=== PATIENT | male | born 1970 | race Caucasian/White ===

== ENCOUNTER 2020-12-25 14:34 | Emergency (ER) | payer MEDICAID | END 2020-12-25 15:50 | disposition left against medical advice (07) | LOC: JP.ED 14:34 | DX: N50.82 Scrotal pain (principal); Z53.21 Procedure and treatment not carried out due to patient leaving prior to being seen by health care provider ==

== ENCOUNTER 2020-12-28 07:06 | Emergency (ER) | payer MEDICAID ==
--- NOTE | 2020-12-28 08:11 | EDM.PDOC ---
ED HPI GENERAL MEDICAL PROBLEM - General Chief Complaint: General Stated Complaint: POSSIBLE STD Time Seen by Provider: 12/28/20 07:30 Source of Information: Reports: Patient, RN Notes Reviewed History Limitations: Reports: Uncooperative - History of Present Illness INITIAL COMMENTS - FREE TEXT/NARRATIVE: 50-year-old gentleman presents emergency department today with complaint of STD of chlamydia as well as scabies, he is very demanding food demands treatment for this medication will not allow me to examine or conduct an interview - Related Data Allergies Allergy/AdvReac Type Severity Reaction Status Date / Time No Known Allergies Allergy Verified 12/28/20 07:17 Home Meds: Home Meds Cyclobenzaprine [Flexeril] 10 mg PO ASDIRECTED PRN 12/25/20 [History] Dextroamphetamine/Amphetamine [Adderall] 30 mg PO BID 12/25/20 [History] Eszopiclone [Lunesta] 3 mg PO ASDIRECTED PRN 12/25/20 [History] Doxycycline [Vibra-Tabs] 100 mg PO Q12HR #14 tab 12/28/20 [Rx] Permethrin [Permethrin 5% Cream] 60 gm .XX ONETIME #1 tube 12/28/20 [Rx] ceFIXime [Cefixime] 800 mg PO ONETIME #2 capsule 12/28/20 [Rx] Past Medical History Other HEENT History: history of ear infections Cardiovascular History: Reports: Hypertension Gastrointestinal History: Reports: GERD Genitourinary History: Reports: Other (See Below) Other Genitourinary History: dysuria Musculoskeletal History: Reports: Fracture Psychiatric History: Reports: ADHD, Anxiety, Depression Dermatologic History: Reports: Venous Stasis Dermatitis Other Dermatologic History: history of issues with skin - Infectious Disease History Infectious Disease History: Reports: Chicken Pox - Past Surgical History Other Musculoskeletal Surgeries/Procedures:: plate in right arm, back problems, neck problems Social & Family History - Tobacco Use Tobacco Use Status *Q: Current Every Day Tobacco User Years of Tobacco use: 35 Packs/Tins Daily: 1 - Caffeine Use Caffeine Use: Reports: Coffee, Energy Drinks, Soda, Tea - Recreational Drug Use Recreational Drug Use: Yes Recreational Drug Type: Reports: Marijuana/Hashish Recreational Drug Use Frequency: Daily ED ROS GENERAL - Review of Systems Review Of Systems: Unable To Obtain Reason Not Obtained: Cooperative ED EXAM, GENERAL - Physical Exam Exam: See Below Free Text/Narrative:: Examination of the penis done in the presence of nursing staff and appreciate any lesions there is no discharge chlamydia GC swab was obtained the urethra tip, He also shows me a rash that he has on the side of his trunk could possibly be scabies but I am not allowed to examine this Exam Limited By: Uncooperative General Appearance: Alert, WD/WN, No Apparent Distress Course - Vital Signs Last Recorded V/S: Last Vital Signs Temp 97.2 F 12/28/20 07:18 Pulse 88 12/28/20 07:18 Resp 18 12/28/20 07:18 BP 139/90 12/28/20 07:18 Pulse Ox 98 12/28/20 07:18 - Orders/Labs/Meds Orders: Active Orders 24 hr Category Date Time Status CHLAMYDIA/GC AMPLIFICATION Stat Lab 12/28/20 07:46 Ordered Departure - Departure Time of Disposition: 08:10 Disposition: Home, Self-Care 01 Condition: Fair Clinical Impression: Chlamydia, Scabies - Discharge Information Prescriptions: ceFIXime [Cefixime] 800 mg PO ONETIME #2 capsule Permethrin [Permethrin 5% Cream] 60 gm .XX ONETIME #1 tube Doxycycline [Vibra-Tabs] 100 mg PO Q12HR #14 tab Instructions: Chlamydia, Male Referrals: PCP,None [Primary Care Provider] - Additional Instructions: Your medications have been faxed to [facility] pharmacy make sure you take the complete dose of antibiotics you can use the permethrin 1 time leave it on for about 14 hours may repeat in 2 weeks if needed Sepsis Event Note (ED) - Evaluation Sepsis Screening Result: No Definite Risk - Focused Exam Vital Signs: Vital Signs Temp Pulse Resp BP Pulse Ox 12/28/20 07:18 97.2 F 88 18 139/90 98 - My Orders Last 24 Hours: My Active Orders 12/28/20 07:46 CHLAMYDIA/GC AMPLIFICATION Stat - Assessment/Plan Last 24 Hours: My Active Orders 12/28/20 07:46 CHLAMYDIA/GC AMPLIFICATION Stat Plan: Assessment Acuity = acute Site and laterality = presumptive STD of chlamydia presumptive scabies Etiology = unknown Manifestations = none Location of injury = Home Lab values = GC chlamydia culture pending Plan Elected to treat he declined to do any treatment here therefore cefixime 800 mg p.o. x1 and doxycycline 100 mg p.o. twice daily x7 days combination with permethrin cream faxed to [facility] This note was dictated using [employer] voice recognition software please call with any questions on syntax or grammar.
[2020-12-30 10:13] LABS: CHLAMYDIA TRACHOMATIS, NAA Negative (Negative); NEISSERIA GONORRHOEAE, NAA Negative (Negative)
== END 2020-12-28 08:16 | disposition home or self-care (01) ==
LOC: JP.ED 07:06
DX: B86 Scabies (principal); A74.9 Chlamydial infection, unspecified; I10 Essential (primary) hypertension; Z72.0 Tobacco use; Z79.899 Other long term (current) drug therapy; Z20.2 Contact with and (suspected) exposure to infections with a predominantly sexual mode of transmission
CPT/HCPCS: 87491; 87591; 99283

== ENCOUNTER 2021-01-05 23:13 | Emergency (ER) | payer MEDICAID ==
--- NOTE | 2021-01-05 23:28 | EDM.PDOCBH ---
ED HPI GENERAL MEDICAL PROBLEM - General Chief Complaint: Behavioral/Psych Stated Complaint: MEDICAL [facility]IA [facility] Time Seen by Provider: 01/05/21 23:20 Source of Information: Reports: Patient, EMS, Old Records History Limitations: Reports: No Limitations - History of Present Illness INITIAL COMMENTS - FREE TEXT/NARRATIVE: Italo is a 50-year-old male presenting to the ED via [facility] for evaluation of auditory hallucinations. Patient reports that he has been dealing with this on and off for about a year but has been really more significant over the last 3 days. Patient has not been able to get more than a few hours sleep because the voices will not leave him alone. He hears a discrete male and female voice. They I repeatedly barking out commands to him. At times he hears static. Patient is convinced that there is an implant in his head or in his ears that are causing it. He is adamant that he is not schizophrenic or crazy. The patient does have a significant past medical history for methamphetamine use. He has been a smoker for 35 pack years. He has had diminished appetite and has become increasingly distressed with the voices. The patient lives in a fish house in [place] and the owners of the property have noted that he has been much more agitated lately talking louder and slamming doors. The patient himself called law enforcement tonight because of the hallucinations. He had previously been on Adderall but has discontinued about a year ago. Currently is on permethrin for treatment of scabies and doxycycline for treatment of an STD. He also takes Lunesta as needed but has not taken in the last several weeks as it does not really do anything for him. - Related Data Allergies Allergy/AdvReac Type Severity Reaction Status Date / Time No Known Allergies Allergy Verified 01/05/21 23:35 Home Meds: Home Meds Cyclobenzaprine [Flexeril] 10 mg PO ASDIRECTED PRN 12/25/20 [History] Eszopiclone [Lunesta] 3 mg PO ASDIRECTED PRN 12/25/20 [History] Doxycycline [Vibra-Tabs] 100 mg PO Q12HR #14 tab 12/28/20 [Rx] Permethrin [Permethrin 5% Cream] 60 gm .XX ONETIME #1 tube 12/28/20 [Rx] ceFIXime [Cefixime] 800 mg PO ONETIME #2 capsule 12/28/20 [Rx] OLANZapine [Olanzapine] 5 mg PO DAILY #30 tablet 01/06/21 [Rx] Past Medical History Other HEENT History: history of ear infections Cardiovascular History: Reports: Hypertension Gastrointestinal History: Reports: GERD Genitourinary History: Reports: Other (See Below) Other Genitourinary History: dysuria Musculoskeletal History: Reports: Fracture Psychiatric History: Reports: ADHD, Anxiety, Depression Dermatologic History: Reports: Venous Stasis Dermatitis Other Dermatologic History: history of issues with skin - Infectious Disease History Infectious Disease History: Reports: Chicken Pox - Past Surgical History Other Musculoskeletal Surgeries/Procedures:: plate in right arm, back problems, neck problems Social & Family History - Caffeine Use Caffeine Use: Reports: Coffee, Energy Drinks, Soda, Tea ED ROS GENERAL - Review of Systems Review Of Systems: See Below Constitutional: Reports: Decreased Appetite HEENT: Reports: No Symptoms Respiratory: Reports: No Symptoms Cardiovascular: Reports: No Symptoms Endocrine: Reports: No Symptoms GI/Abdominal: Reports: No Symptoms : Reports: No Symptoms Musculoskeletal: Reports: No Symptoms Skin: Reports: No Symptoms Neurological: Reports: No Symptoms Psychiatric: Reports: Agitation, Anxiety, Hallucinations (Auditory hallucinations with 2 discrete voices one being a male and other being a female) Hematologic/Lymphatic: Reports: No Symptoms Immunologic: Reports: No Symptoms ED EXAM, BEHAVIORAL HEALTH - Physical Exam Exam: See Below Exam Limited By: No Limitations General Appearance: Alert, Anxious Eye Exam: Bilateral Eye: EOMI, PERRL Ears: Normal External Exam, Normal Canal, Hearing Grossly Normal, Normal TMs Nose: Normal Inspection, Normal Mucosa, No Blood Throat/Mouth: Normal Inspection, Normal Lips, Normal Oropharynx, Normal Voice, No Airway Compromise Head: Normocephalic, Other (Small abrasion on the left zygomatic arch) Neck: Normal Inspection, Supple Respiratory/Chest: No Respiratory Distress, Lungs Clear, Normal Breath Sounds Cardiovascular: Normal Peripheral Pulses, Regular Rate, Rhythm GI/Abdominal: Normal Bowel Sounds, Soft, Non-Tender, No Distention Back Exam: Normal Inspection, Full Range of Motion Extremities: Normal Inspection, Normal Range of Motion Neurological: Alert, Normal Mood/Affect, Normal Cognition, No Motor/Sensory Deficits, Oriented x 3 Psychiatric: Alert, Agitated, Auditory Hallucinations Skin Exam: Warm, Dry COURSE, BEHAVIORAL HEALTH COMP - Course Vital Signs: Last Vital Signs Temp 36.6 C 01/05/21 23:38 Pulse 99 01/05/21 23:38 Resp 18 01/05/21 23:38 BP 145/85 H 01/05/21 23:38 Pulse Ox 100 01/05/21 23:38 Orders, Labs, Meds: Active Orders 24 hr Category Date Time Status DRUG SCREEN, URINE [URCHEM] Stat Lab 01/05/21 23:52 Ordered OLANZapine [ZyPREXA] Med 01/06/21 00:07 Once 5 mg PO ONETIME ONE Medication Orders Olanzapine (Olanzapine 5 Mg Tab) 5 mg PO ONETIME ONE Stop: 01/06/21 00:08 Laboratory Tests 01/05/21 01/05/21 01/05/21 Range/Units 23:32 23:32 23:32 WBC 9.1 (4.5-11.0) K/uL RBC 5.03 (4.30-5.90) M/uL Hgb 15.6 H (12.0-15.0) g/dL Hct 45.8 (40.0-54.0) % MCV 91 (80-98) fL MCH 31 (27-31) pg MCHC 34 (32-36) % Plt Count 205 (150-400) K/uL Sodium 146 (140-148) mmol/L Potassium 3.8 (3.6-5.2) mmol/L Chloride 106 (100-108) mmol/L Carbon Dioxide 30 (21-32) mmol/L Anion Gap 10.4 (5.0-14.0) mmol/L BUN 12 (7-18) mg/dL Creatinine 1.0 (0.8-1.3) mg/dL Est Cr Clr Drug Dosing 98.66 mL/min Estimated GFR (MDRD) > 60 (>60) Glucose 105 (74-106) mg/dL Calcium 9.3 (8.5-10.1) mg/dL Total Bilirubin 0.5 (0.2-1.0) mg/dL AST 20 (15-37) U/L ALT 25 (12-78) U/L Alkaline Phosphatase 77 (46-116) U/L Total Protein 7.1 (6.4-8.2) g/dL Albumin 3.9 (3.4-5.0) g/dL Globulin 3.2 (2.3-3.5) g/dL Albumin/Globulin Ratio 1.2 (1.2-2.2) Urine Color (YELLOW) Urine Appearance (CLEAR) Urine pH (5.0-8.0) Ur Specific Stafford (1.008-1.030) Urine Protein (NEGATIVE) mg/dL Urine Glucose (UA) (NEGATIVE) mg/dL Urine Ketones (NEGATIVE) mg/dL Urine Occult Blood (NEGATIVE) Urine Nitrite (NEGATIVE) Urine Bilirubin (NEGATIVE) Urine Urobilinogen (0.2-1.0) EU/dL Ur Leukocyte Esterase (NEGATIVE) Urine RBC (0-5) Urine WBC (0-5) Ur Epithelial Cells Amorphous Sediment Urine Bacteria Urine Mucus Ethyl Alcohol < 3 mg/dL 01/05/21 Range/Units 23:52 WBC (4.5-11.0) K/uL RBC (4.30-5.90) M/uL Hgb (12.0-15.0) g/dL Hct (40.0-54.0) % MCV (80-98) fL MCH (27-31) pg MCHC (32-36) % Plt Count (150-400) K/uL Sodium (140-148) mmol/L Potassium (3.6-5.2) mmol/L Chloride (100-108) mmol/L Carbon Dioxide (21-32) mmol/L Anion Gap (5.0-14.0) mmol/L BUN (7-18) mg/dL Creatinine (0.8-1.3) mg/dL Est Cr Clr Drug Dosing mL/min Estimated GFR (MDRD) (>60) Glucose (74-106) mg/dL Calcium (8.5-10.1) mg/dL Total Bilirubin (0.2-1.0) mg/dL AST (15-37) U/L ALT (12-78) U/L Alkaline Phosphatase (46-116) U/L Total Protein (6.4-8.2) g/dL Albumin (3.4-5.0) g/dL Globulin (2.3-3.5) g/dL Albumin/Globulin Ratio (1.2-2.2) Urine Color Yellow (YELLOW) Urine Appearance Slightly cloudy A (CLEAR) Urine pH 7.0 (5.0-8.0) Ur Specific Stafford 1.025 (1.008-1.030) Urine Protein Negative (NEGATIVE) mg/dL Urine Glucose (UA) Negative (NEGATIVE) mg/dL Urine Ketones Negative (NEGATIVE) mg/dL Urine Occult Blood Negative (NEGATIVE) Urine Nitrite Negative (NEGATIVE) Urine Bilirubin Negative (NEGATIVE) Urine Urobilinogen 0.2 (0.2-1.0) EU/dL Ur Leukocyte Esterase Negative (NEGATIVE) Urine RBC 0-5 (0-5) Urine WBC 0-5 (0-5) Ur Epithelial Cells Few Amorphous Sediment Moderate Urine Bacteria Few Urine Mucus Not seen Ethyl Alcohol mg/dL Medications Generic Name Dose Route Start Last Admin Trade Name Freq PRN Reason Stop Dose Admin Olanzapine 5 mg 01/06/21 00:07 Olanzapine 5 Mg Tab PO 01/06/21 00:08 ONETIME ONE Re-Assessment/Re-Exam: Viewed the patient's labs and CT of the head. His CBC and comprehensive metabolic panel are unremarkable. His urinalysis is negative. His ethanol is unremarkable. His urine tox screen significant for amphetamines, methamphetamines, and tetrahydrocannabinol. This certainly could be contributing to his psychoses and auditory hallucinations. CT of the head failed to demonstrate any acute abnormalities. Certainly there is no evidence for an implanted device, nor is there evidence for an obvious neoplasm is there is no mass-effect evident. The patient does have a bit more atrophy than expected for his age. Discharge vs Psych Eval/Treatment:: 01/06/21 00:10 although the patient is having auditory hallucinations and increased agitation, he is not suicidal or homicidal. I am somewhat troubled that the patient is positive for amphetamines and methamphetamines as well as THC on his urine tox screen. He reports that he hasn't taken his Adderall in ove r a year and that he has been abstinent from methamphetamine during that time to which does not make sense with these being positive today. He does report that he does use marijuana recreationally. We will initiate therapy with olanzapine 5 mg daily. I do not believe the patient requires hospitalization at this time but should his condition worsen we can reassess this. I'd like him to follow-up with his primary care provider for mental health Gladis Colindres early next week for reevaluation. Departure - Departure Time of Disposition: 00:15 Disposition: Home, Self-Care 01 Clinical Impression: Auditory hallucinations, Acute psychosis, Methamphetamine use - Discharge Information Instructions: Methamphetamines Use Disorder, Psychosis Referrals: PCP,None [Primary Care Provider] - Forms: ED Department Discharge Care Plan Goals: Your CT of the brain today did not show any foreign bodies or appliances. You do have some shrinkage of the brain more than expected for your age. We are starting you on olanzapine 5 mg daily which should help with the voices. Your urine tox screen today was positive for amphetamines which is likely the Adderall and methamphetamines as well as tetrahydrocannabinol which is from marijuana. This can certainly amplify the voices that you're experiencing. Although auditory hallucinations are commonly associated with schizophrenia they can also be accompanied in cases of bipolar disorder. The olanzapine is one of the safer medications to treat the symptoms for both bipolar and schizophrenia. I would like you to see Gladis Colindres early next week for reevaluation. At this time, I believe that we can safely discharge you back home as you're not suicidal or homicidal. I have enclosed a prescription for the olanzapine to have you fill in the morning but have given you a dose tonight to start treatment. Sepsis Event Note (ED) - Focused Exam Vital Signs: Vital Signs Temp Pulse Resp BP Pulse Ox 01/05/21 23:38 36.6 C 99 18 145/85 H 100 - Problem List & Annotations (1) Acute psychosis SNOMED Code(s): 79881493, 26123563 Code(s): F23 - BRIEF PSYCHOTIC DISORDER Status: Acute Priority: High Current Visit: Yes (2) Auditory hallucinations SNOMED Code(s): 60727557 Code(s): R44.0 - AUDITORY HALLUCINATIONS Status: Acute Priority: High Current Visit: Yes (3) Methamphetamine use SNOMED Code(s): 690257931 Code(s): F15.10 - OTHER STIMULANT ABUSE, UNCOMPLICATED Status: Acute Priority: High Current Visit: Yes - Problem List Review Problem List Initiated/Reviewed/Updated: Yes - My Orders Last 24 Hours: My Active Orders 01/05/21 23:52 DRUG SCREEN, URINE [URCHEM] Stat 01/06/21 00:07 OLANZapine [ZyPREXA] 5 mg PO ONETIME ONE - Assessment/Plan Last 24 Hours: My Active Orders 01/05/21 23:52 DRUG SCREEN, URINE [URCHEM] Stat 01/06/21 00:07 OLANZapine [ZyPREXA] 5 mg PO ONETIME ONE
--- NOTE | 2021-01-06 00:03 | CRLCT ---
INDICATION: Auditory hallucinations, facial head injury from trauma TECHNIQUE: CT Head without i.v. contrast. Coronal and sagittal reformats were obtained. COMPARISON: None FINDINGS: CSF space: The ventricles are normal for age. Brain: No evidence of mass, acute infarction or hemorrhage is seen. No mass-effect or midline shift is seen. The brain parenchyma is otherwise normal in appearance with preservation of the pa-white matter junction. Calvarium: The visualized paranasal sinuses are well aerated. The mastoid air cells are clear. The visualized orbits are grossly unremarkable. The calvarium is unremarkable in appearance with no fractures identified. IMPRESSION: 1. No evidence of acute infarction, intracranial hemorrhage, or mass-effect seen. Please note that all CT scans at this facility use dose modulation, iterative reconstruction, and/or weight-based dosing when appropriate to reduce radiation dose to as low as reasonably achievable. Dictated by: Nick Reyes MD @ 01/06/2021 00:02:56 (Electronically Signed)
[2021-01-06] MEDS ORDERED: OLANZapine 5 MG Tab PO ONE (00:07)
== END 2021-01-06 00:40 | disposition home or self-care (01) ==
LOC: JP.ED 23:13
DX: F23 Brief psychotic disorder (principal); F15.90 Other stimulant use, unspecified, uncomplicated; I10 Essential (primary) hypertension; Z79.899 Other long term (current) drug therapy
CPT/HCPCS: 36415; 70450; 80053; 80305; 80307; 81001; 85027; 99285; A9270; 99283

== ENCOUNTER 2021-01-21 02:06 | Emergency (ER) | payer MEDICAID ==
[2021-01-21] MEDS ORDERED: Ketorolac 60 MG/2 ML SDV IM ONE (02:54)
--- NOTE | 2021-01-21 03:00 | EDM.PDOC ---
ED HPI GENERAL MEDICAL PROBLEM - General Chief Complaint: Lower Extremity Injury/Pain Stated Complaint: HIP PAIN Time Seen by Provider: 01/21/21 02:45 Source of Information: Reports: Patient History Limitations: Reports: No Limitations - History of Present Illness INITIAL COMMENTS - FREE TEXT/NARRATIVE: Italo is a 50-year-old male who is known to me from previous visit last month presenting today for complaint of bilateral hip and low back pain. The patient states that he walked here from [place] where he has been living. He also reports that he works at the [employer] in [place] and when asked how he goes from [place] to [place] states that they send a bus form. Patient has a history significant for psychoses secondary to methamphetamine use and schizophrenia. He told nursing that he has been taking 5-8 Flexeril a day for his back. He states that he is here from [place] to get his car but his car would not run. He reports that the pain is not new and has been going on for least the last year and a half. He states that he can get through a workday without difficulty. He denies any pain down either of the legs. Bilateral Hip Pain Score (Numeric/FACES): 6 - Related Data Allergies Allergy/AdvReac Type Severity Reaction Status Date / Time No Known Allergies Allergy Verified 01/21/21 02:32 Home Meds: Home Meds Cyclobenzaprine [Flexeril] 10 mg PO ASDIRECTED PRN 12/25/20 [History] Eszopiclone [Lunesta] 3 mg PO ASDIRECTED PRN 12/25/20 [History] OLANZapine [Olanzapine] 5 mg PO DAILY #30 tablet 01/06/21 [Rx] Dextroamphetamine/Amphetamine [Adderall] 30 mg PO BID 01/21/21 [History] Past Medical History Other HEENT History: history of ear infections Cardiovascular History: Reports: Hypertension Gastrointestinal History: Reports: GERD Genitourinary History: Reports: Other (See Below) Other Genitourinary History: dysuria Musculoskeletal History: Reports: Back Pain, Chronic, Fracture, Neck Pain, Chronic Other Musculoskeletal History: cervical radiculopathy at c7 Psychiatric History: Reports: ADHD, Addiction, Antisocial Behaviors, Anxiety, Bipolar, Depression, Psychosis, Schizophrenia Dermatologic History: Reports: Venous Stasis Dermatitis Other Dermatologic History: history of issues with skin - Infectious Disease History Infectious Disease History: Reports: Chicken Pox - Past Surgical History Other Musculoskeletal Surgeries/Procedures:: plate in right arm, back problems, neck problems Social & Family History - Family History Family Medical History: No Pertinent Family History - Tobacco Use Tobacco Use Status *Q: Current Every Day Tobacco User Years of Tobacco use: 35 Packs/Tins Daily: 1 - Caffeine Use Caffeine Use: Reports: Coffee, Energy Drinks, Soda - Recreational Drug Use Recreational Drug Type: Reports: Marijuana/Hashish, Methamphetamine ED ROS GENERAL - Review of Systems Review Of Systems: See Below Constitutional: Reports: No Symptoms HEENT: Reports: No Symptoms Respiratory: Reports: No Symptoms Cardiovascular: Reports: No Symptoms Endocrine: Reports: No Symptoms GI/Abdominal: Reports: No Symptoms : Reports: No Symptoms Musculoskeletal: Reports: Back Pain (Chronic low back pain) Skin: Reports: No Symptoms Neurological: Reports: No Symptoms Psychiatric: Reports: Other (Schizophrenia, polysubstance abuse including prescription drugs and methamphetamine) Hematologic/Lymphatic: Reports: No Symptoms Immunologic: Reports: No Symptoms ED EXAM,LOWER BACK PAIN/INJURY - Physical Exam Exam: See Below Exam Limited By: No Limitations General Appearance: Alert, No Apparent Distress Head: Atraumatic, Normocephalic Respiratory/Chest: No Respiratory Distress, Lungs Clear, Normal Breath Sounds Cardiovascular: Normal Peripheral Pulses, Regular Rate, Rhythm Back Exam: Normal Inspection, Full Range of Motion. No: Muscle Spasm, Paraspinal Tenderness, Vertebral Tenderness Extremities: Normal Inspection, Normal Range of Motion, No Pedal Edema Neurological: Alert, Normal Dorsiflexion, Normal Plantar Flexion, Normal Gait, Normal Reflexes, No Motor/Sensory Deficits, Oriented x 3 Skin Exam: Warm, Dry, Intact, Normal Color Lymphatic: No Adenopathy Course - Vital Signs Last Recorded V/S: Last Vital Signs Temp 35.7 C L 01/21/21 02:26 Pulse 100 01/21/21 02:26 Resp 16 01/21/21 02:26 BP 167/93 H 01/21/21 02:26 Pulse Ox 98 01/21/21 02:26 - Orders/Labs/Meds Orders: Active Orders 24 hr Category Date Time Status Pelvis 1V or 2V [CR] Stat Exams 01/21/21 03:43 Taken ESR [SEDIMENTATION RATE MANUAL] [HEME] Stat Lab 01/21/21 02:53 Ordered Labs: Laboratory Tests 01/21/21 Range/Units 03:10 C-Reactive Protein 0.29 (0.0-0.3) mg/dL Meds: Medications Discontinued Medications Generic Name Dose Route Start Last Admin Trade Name Ada PRN Reason Stop Dose Admin Ketorolac Tromethamine 60 mg 01/21/21 02:54 01/21/21 03:00 Ketorolac 60 Mg/2 Ml Sdv IM 01/21/21 02:55 60 mg ONETIME ONE Administration - Radiology Interpretation Free Text/Narrative:: I reviewed the 1 view x-ray of the pelvis showing scoliosis of the lower lumbar spine which is chronic. There is no acute fractures. The pelvis is essentially unremarkable without any evidence of sacroiliac inflammation or widening. Bilateral hips are normal. - Re-Assessments/Exams Free Text/Narrative Re-Assessment/Exam: 01/21/21 03:02 Italo is basically here seeking additional Flexeril. The concern is he has been probably abusing it taking 5-8 a day which is far more than he should be. He does have a history of methamphetamine abuse but states that he has not used since he was started back on his Adderall. It does appear and looking at his medical records that he has been making the rounds trying to get medication. My exam shows no acute abnormalities. We are checking inflammatory markers including CRP and ESR but they are likely both going to be negative. I did give him a shot of Toradol 60 mg IM for his "pain". 01/21/21 04:25 I reviewed the x-rays and his labs. His inflammatory markers are normal. The x-rays show scoliosis of the lower lumbar spine which is chronic. There is no acute sacroiliitis, widening of the sacroiliac joints, or hip abnormalities. There is no acute fractures. We will put the patient on Toradol 10 mg 4 times daily for 5 days. I will not fill his cyclobenzaprine as I believe he is abusing it taking 5-8 a day. Patient is instructed to follow-up with his primary care provider. Departure - Departure Time of Disposition: 04:28 Disposition: Home, Self-Care 01 Clinical Impression: Chronic low back pain without sciatica Qualifiers: Back pain laterality: midline Qualified Code(s): M54.5 - Low back pain; G89.29 - Other chronic pain - Discharge Information Instructions: Chronic Back Pain, [id number] Referrals: PCP,None [Primary Care Provider] - Forms: ED Department Discharge Care Plan Goals: I am putting you on Toradol 10 mg 4 times a day for your ongoing low back pain. On exam there is no evidence for muscle spasm so there is no need to prescribe a muscle relaxant. Follow-up with your primary care provider when you get back to [place]. Sepsis Event Note (ED) - Evaluation Sepsis Screening Result: No Definite Risk - Focused Exam Vital Signs: Vital Signs Temp Pulse Resp BP Pulse Ox 01/21/21 02:26 35.7 C L 100 16 167/93 H 98 - Problem List & Annotations (1) Chronic low back pain without sciatica SNOMED Code(s): 996153772 Code(s): M54.5 - LOW BACK PAIN; G89.29 - OTHER CHRONIC PAIN Status: Acute Priority: Medium Current Visit: Yes Qualifiers: Back pain laterality: midline Qualified Code(s): M54.5 - Low back pain; G89.29 - Other chronic pain - Problem List Review Problem List Initiated/Reviewed/Updated: Yes - My Orders Last 24 Hours: My Active Orders 01/21/21 02:53 ESR [SEDIMENTATION RATE MANUAL] [HEME] Stat 01/21/21 03:43 Pelvis 1V or 2V [CR] Stat - Assessment/Plan Last 24 Hours: My Active Orders 01/21/21 02:53 ESR [SEDIMENTATION RATE MANUAL] [HEME] Stat 01/21/21 03:43 Pelvis 1V or 2V [CR] Stat
--- NOTE | 2021-01-22 11:06 | CR ---
Pelvis 1V or 2V CLINICAL HISTORY: Bilateral SI joint pain FINDINGS: No pelvic fractures identified. Sacrum appears intact. SI joints appear intact and symmetric. Patient has a lumbar levoscoliosis. There is osteoarthritis in the lower lumbar facets IMPRESSION: No fracture or osseous lesion Levoscoliosis Osteoarthritis in the lower lumbar facets
== END 2021-01-21 04:36 | disposition home or self-care (01) ==
LOC: JP.ED 02:06
DX: G89.29 Other chronic pain (principal); M54.5 Low back pain; I10 Essential (primary) hypertension; Z72.0 Tobacco use
CPT/HCPCS: 36415; 72170; 72170-26; 85651; 86140; 96372; 99283; J1885

== ENCOUNTER 2021-02-15 07:22 | Emergency (ER) | payer MEDICAID ==
[2021-02-15] MEDS ORDERED: Ketorolac 60 MG/2 ML SDV IM ONE (07:48)
--- NOTE | 2021-02-15 07:57 | EDM.PDOC ---
ED HPI GENERAL MEDICAL PROBLEM - General Chief Complaint: General Stated Complaint: HIP PAIN, RT ANKLE PAIN Time Seen by Provider: 02/15/21 07:49 Source of Information: Reports: Patient, Old Records History Limitations: Reports: Other (Seems perturbed that he should have to tell me anything about his situation, just needs something for pain. ) - History of Present Illness INITIAL COMMENTS - FREE TEXT/NARRATIVE: 50 yo male returns for an ER visit for hip and low back pain. He was recently here and seen by one of our ER docs and given Toradol orally for his chronic pain and was asked to follow up with his primary care provider. He returns today for the same problem and seems angry that "nothing is being done". He apparently told the last provider that he was from [place] and was shortly returning there. Today he gets upset when I asked him how long he would be in the area. My reason for asking was that I had planned on referring him to our PT dept if he was staying to an extended period of time. I stepped out of the room to give him a chance to calm down and get composed and within 3 min of my stepping out he walked out of the ER upset, ie., eloped. He did say while I was in the room that he has Dr. French as his primary care provider. Onset: Unknown/Unsure Duration: Chronic Location: Reports: Back, Pelvis (both hips) Quality: Reports: Ache Severity: Moderate Improves with: Reports: Medication Worsens with: Reports: Other (unsure) Context: Reports: Other (See HPI) Associated Symptoms: Reports: No Other Symptoms Treatments GRIZZLYMAN: Reports: Other (see below) (Recently on oral Toradol) Bilateral Hip Pain Score (Numeric/FACES): 9 - Related Data Allergies Allergy/AdvReac Type Severity Reaction Status Date / Time No Known Allergies Allergy Verified 01/21/21 02:32 Home Meds: Home Meds Cyclobenzaprine [Flexeril] 10 mg PO ASDIRECTED PRN 12/25/20 [History] Eszopiclone [Lunesta] 3 mg PO ASDIRECTED PRN 12/25/20 [History] OLANZapine [Olanzapine] 5 mg PO DAILY #30 tablet 01/06/21 [Rx] Dextroamphetamine/Amphetamine [Adderall] 30 mg PO BID 01/21/21 [History] Past Medical History Other HEENT History: history of ear infections Cardiovascular History: Reports: Hypertension Gastrointestinal History: Reports: GERD Genitourinary History: Reports: Other (See Below) Other Genitourinary History: dysuria Musculoskeletal History: Reports: Back Pain, Chronic, Fracture, Neck Pain, Chronic Other Musculoskeletal History: cervical radiculopathy at c7 Psychiatric History: Reports: ADHD, Addiction, Antisocial Behaviors, Anxiety, Bipolar, Depression, Psychosis, Schizophrenia Dermatologic History: Reports: Venous Stasis Dermatitis Other Dermatologic History: history of issues with skin - Infectious Disease History Infectious Disease History: Reports: Chicken Pox - Past Surgical History Other Musculoskeletal Surgeries/Procedures:: plate in right arm, back problems, neck problems Social & Family History - Family History Family Medical History: No Pertinent Family History - Tobacco Use Tobacco Use Status *Q: Current Every Day Tobacco User Years of Tobacco use: 30 Packs/Tins Daily: 1 - Caffeine Use Caffeine Use: Reports: Coffee, Soda, Tea - Recreational Drug Use Recreational Drug Use: Yes Drug Use in Last 12 Months: Yes Recreational Drug Type: Reports: Marijuana/Hashish ED ROS GENERAL - Review of Systems Review Of Systems: Unable To Obtain Reason Not Obtained: eloped before this information could be attained. ED EXAM, GENERAL - Physical Exam Exam: Not Obtained Reason Not Obtained: patient eloped Course - Vital Signs Last Recorded V/S: Last Vital Signs Temp 36.2 C 02/15/21 07:40 Pulse 83 02/15/21 07:40 Resp 18 02/15/21 07:40 BP 143/94 H 02/15/21 07:40 Pulse Ox 100 02/15/21 07:40 - Orders/Labs/Meds Orders: Active Orders 24 hr Category Date Time Status Ketorolac [Toradol] Med 02/15/21 07:48 Once 60 mg IM ONETIME ONE Departure - Departure Time of Disposition: 07:55 Disposition: Eloped 07 Condition: Good Clinical Impression: Chronic back pain Qualifiers: Back pain location: low back pain Back pain laterality: unspecified Sciatica presence: without sciatica Qualified Code(s): M54.5 - Low back pain; G89.29 - Other chronic pain - Discharge Information *PRESCRIPTION DRUG MONITORING PROGRAM REVIEWED*: No *COPY OF PRESCRIPTION DRUG MONITORING REPORT IN PATIENT DOROTHY: No Referrals: Gladis Quarles MD [Primary Care Provider] - Sepsis Event Note (ED) - Evaluation Sepsis Screening Result: No Definite Risk - Focused Exam Vital Signs: Vital Signs Temp Pulse Resp BP Pulse Ox 02/15/21 07:40 36.2 C 83 18 143/94 H 100 02/15/21 07:36 36.2 C 83 18 143/94 H 100 - My Orders Last 24 Hours: My Active Orders 02/15/21 07:48 Ketorolac [Toradol] 60 mg IM ONETIME ONE - Assessment/Plan Last 24 Hours: My Active Orders 02/15/21 07:48 Ketorolac [Toradol] 60 mg IM ONETIME ONE
== END 2021-02-15 07:51 | disposition left against medical advice (07) ==
LOC: JP.ED 07:22
DX: M54.5 Low back pain (principal); G89.29 Other chronic pain; I10 Essential (primary) hypertension; Z79.899 Other long term (current) drug therapy; Z72.0 Tobacco use
CPT/HCPCS: 99283